=== PATIENT | male | born 2000 | race Caucasian/White ===

== ENCOUNTER 2018-12-03 17:32 | Emergency (ER) | payer SELFPAY ==
[2018-12-03 17:33] VITALS: BP 135/81; PULSE 103; RESP 18; TEMP 36.7; O2SAT 97; BMI 18.7
[2018-12-03 21:30] VITALS: BMI 18.7
== END 2018-12-03 19:09 | disposition left against medical advice (07) ==
LOC: ED 19:12
PROVIDERS: Emergency Provider Emergency Medicine; Family Provider Family Medicine; PCP Family Medicine
DX: R69 Illness, unspecified (principal); Z53.21 Procedure and treatment not carried out due to patient leaving prior to being seen by health care provider
CPT/HCPCS: 99281

== ENCOUNTER 2019-10-05 22:34 | Emergency (ER) | payer SELFPAY ==
[2019-10-05 22:35] VITALS: BP 146/78; PULSE 79; RESP 18; TEMP 36.2; O2SAT 96
--- NOTE | 2019-10-05 22:57 | ED.VISSUMM ---
- ER Visit Summary Date of Service: 10/05/19 Chief Complaint: Right hand pain and swelling History of Present Illness: 18-year-old male was long board skateboarding when he fell injuring his right hand. No other injuries. Physical Examination: Well-appearing young male no acute distress vital signs stable afebrile. HEENT normal. Lungs are clear. Heart regular rhythm. Abdomen soft nontender. Patient is moving all 4 extremities. Neurovascular intact. Normal range of motion. Specifically right elbow, forearm and wrist are nontender nonswollen with normal range of motion. Right hand has swelling and tenderness about the MCP joint and distal fifth or small metacarpal. Skin is intact. He is able to do flexion-extension. The other digits of the hand are nontender nonswollen. Hand is neurovascular intact with normal cap refill and touch sensation. Test Results: Right hand x-ray 3 views read by myself and the radiologist shows a right small or fifth metacarpal distal and angulated fracture. I did go over the x-rays with the patient and his mother. Emergency Department Course and Treatment: X-ray being obtained. Patient did not want anything for pain at this time. Treatment Plan: I applied a short arm ulnar gutter Ortho-Glass splint. Reduce the fracture. Orthopedic follow-up. Disposition: Discharge Impression: Acute right hand fifth or small metacarpal fracture Short arm ulnar gutter Ortho-Glass splint by ER This note was generated with [employer] dictation software. It may contain incorrect words, spelling, and punctuation that were not noted in review of the chart prior to signing ED Disposition - Plan for ED Patient: Referrals: Harshad Nunez MD [Primary Care Provider] -
--- NOTE | 2019-10-05 23:06 | RAD_ITS ---
STUDY: X-RAY - RIGHT HAND REASON FOR EXAM: Male, 18 years old. Right hand pain after fall. TECHNIQUE: view(s) of the hand. COMPARISON: None. FINDINGS: Normal radiocarpal articulation. Normal distal radioulnar joint. Normal visualized carpal bones. Normal carpal articulations Normal carpometacarpal articulation of the thumb. Normal second through fifth carpometacarpal joints. Normal first through fourth metacarpi. There is a fracture of the distal fifth metacarpal with volar angulation of the distal fracture fragment. Normal metacarpophalangeal joint of the thumb. Normal interphalangeal joint of the thumb. Normal proximal and distal phalanges of the thumb. Normal metacarpophalangeal joints of the second through fifth fingers. Normal proximal and distal interphalangeal joints of the second through fifth fingers. Normal phalanges of the second through fifth fingers. There is medial soft tissue swelling. RAD/Hand Min 3 Views IMPRESSION: Fracture of the fifth metacarpal with associated soft tissue swelling. Electronically Signed: Rancho Tompkins DO at 23:17 EDT Tel [phone], Service support ,
--- NOTE | 2019-10-05 23:42 | ED.DEP ---
ED Disposition - Plan for ED Patient: Disposition: Home or Assisted Living Instructions: ED Fx [facility] Referrals: Maikel Shaw, [STAFF PHYSICIAN] - As soon as possible Additional Instructions: Keep splint dry and clean. Ice and elevate for the next 2 days. Tylenol and/or Motrin for pain and swelling. Call and follow-up with Dr. Maikel Shaw of [facility] to have this reevaluated.
== END 2019-10-05 23:49 | disposition home or self-care (01) ==
PROVIDERS: Emergency Provider Emergency Medicine; PCP Family Medicine
DX: S62.396A Other fracture of fifth metacarpal bone, right hand, initial encounter for closed fracture (principal); Z72.0 Tobacco use; W18.30XA Fall on same level, unspecified, initial encounter; Y93.51 Activity, roller skating (inline) and skateboarding; Y92.89 Other specified places as the place of occurrence of the external cause; Y99.8 Other external cause status
CPT/HCPCS: 29125; 73130; 99282

== ENCOUNTER 2024-06-10 12:16 | Emergency (ER) | payer SELFPAY ==
[2024-06-10 12:17] VITALS: BP 125/83; PULSE 82; RESP 18; TEMP 35.8; O2SAT 97
[2024-06-10] MEDS: Ketorolac 15 MG/ML Vial IM (15:36)
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
[2024-06-10 16:02] VITALS: BP 125/83; PULSE 82; RESP 18; TEMP 35.8; O2SAT 97
== END 2024-06-10 16:24 | disposition home or self-care (01) ==
PROVIDERS: Emergency Provider Emergency Medicine; PCP Family Medicine; Visit Provider Emergency Medicine
DX: S39.012A Strain of muscle, fascia and tendon of lower back, initial encounter (principal); F17.290 Nicotine dependence, other tobacco product, uncomplicated; Z87.81 Personal history of (healed) traumatic fracture; X58.XXXA Exposure to other specified factors, initial encounter
CPT/HCPCS: 96372; 99282

== ENCOUNTER 2024-07-26 14:38 | Emergency (ER) | payer SELFPAY ==
[2024-07-26 14:39] VITALS: BP 118/74; PULSE 86; RESP 16; TEMP 37.1; O2SAT 98; BMI 17.4
--- NOTE | 2024-07-26 15:05 | EX.ED.DYSGE1 ---
HPI History of Present Illness Chief Complaint: Sore Throat Informant: patient Narrative Narrative: Patient is on day #3 of sore throat and experiencing some throat swelling. Symptoms are diffuse in his throat along with odynophagia. No fevers or chills. He has had a mild cough, no abdominal pain, mild headache. His significant other was just ill with the same thing, she states the sore throat part lasted about 3 days and is now better and she is still coughing. PFSH PFS Medical History L4 vertebral fracture L3 vertebral fracture Home Medications ?Medication ?Instructions ?Recorded ?Last Taken ?Type ibuprofen 600 mg tablet 600 mg PO Q6H PRN PRN pain #20 06/10/24 Unknown Rx TABLETS amoxicillin 500 mg tablet 500 mg PO TID #30 tabs 07/26/24 Unknown Rx Allergy/AdvReac Type Severity Reaction Status Date / Time cod liver oil AdvReac Upset Verified 07/26/24 14:38 Stomach Social History Smoking Status: Current every day smoker tobacco type: e-cigarettes ROS ROS ED Constitutional Constitutional ED: Denies chills or fever(s) Eyes Eyes: Denies change in vision ENT ENT ED: Reports sore throat and throat swelling; Denies ear pain, nasal congestion, rhinorrhea or tongue swelling Cardiovascular Cardiovascular: Denies chest pain or palpitations Respiratory/Chest Respiratory/Chest: Reports cough; Denies dyspnea Gastrointestinal Gastrointestinal: Denies abdominal pain, diarrhea, nausea or vomiting Genitourinary Genitourinary ED: Denies dysuria or hematuria Musculoskeletal Musculoskeletal: Denies myalgias or neck pain Integumentary Denies abscess or rash Neurologic Neurologic: Reports headache(s); Denies paresthesias or weakness Psychiatric Psychiatric: Denies depression or suicidal thoughts Endocrine Endocrinology: Denies polydipsia or polyuria EXAM Physical Exam Const Vital Signs: 07/26/24 14:39 Temperature 98.8 F Temperature Source Oral Pulse Rate 86 Respiratory Rate 16 Blood Pressure 118/74 Blood Pressure Mean 88 Pulse Ox 98 Oxygen Delivery Method Room Air Positive well nourished and well developed General Appearance ED: well developed and NAD HEENT Reports moist mucous membranes HEENT Narrative: Potato voice, no stridor. Bilateral tonsillar edema, symmetric, along with erythema without exudates. Posterior pharyngeal and palatal erythema no petechia. No trismus. No tongue elevation. normocephalic and atraumatic Throat: Negative for posterior oropharynx abnormal Eyes PERRL and EOMs intact bilaterally Eyes Narrative: No conjunctivitis Neck supple and no meningeal signs Neck Narrative: Submandibular lymph node tenderness, no other cervical or posterior cervical tenderness/lymphadenopathy. Resp normal respiratory effort and clear to auscultation bilaterally Cardio no murmurs Rate: regular rate Rhythm: regular rhythm GI normal to inspection, nondistended, normoactive bowel sounds, non-tender and non-distended; Negative for hepatosplenomegaly Neuro oriented x3, CN's II-XII intact bilaterally and no sensory deficits noted Sensorium / Orientation: alert Motor Exam: strength 5/5 throughout Psych mental status grossly normal Skin Lesions: no lesions Rashes: no rashes MDM MDM MDM Narrative Medical decision making narrative: Sent a rapid strep, it is positive. This is consistent with strep tonsillitis. Given Decadron as well as started on amoxicillin given appropriate discharge instructions and reasons to return. Discharge Plan Triage Chief Complaint: Sore Throat ED Provider: Maximo Thomson Dx/Rx/DC Orders Clinical Impression: Streptococcal tonsillitis Instructions: ED Pharyngitis, Strep (Confirmed) Prescriptions: New amoxicillin 500 mg tablet 500 mg PO TID Qty: 30 0RF No Action ibuprofen 600 mg tablet 600 mg PO Q6H PRN PRN (Reason: pain) Qty: 20 0RF Primary Care Provider: Care Physician,No Primary Referrals: Doctor,Your [Non-Staff] - 3-5 Days if not improving Print Language: Malaysian Disposition Disposition: Home, Self Care
[2024-07-26] MEDS: dexAMETHasone 4 MG Tablet 12 MG PO (16:20)
[2024-07-26] MEDS: AMOXICILLIN 500 MG CAPSULE PO (16:20)
[2024-07-26 16:30] VITALS: BP 124/78; PULSE 64; RESP 18; TEMP 36.6; O2SAT 99
== END 2024-07-26 16:31 | disposition home or self-care (01) ==
PROVIDERS: Emergency Provider Emergency Medicine; Visit Provider Emergency Medicine
DX: J03.00 Acute streptococcal tonsillitis, unspecified (principal); F17.290 Nicotine dependence, other tobacco product, uncomplicated
CPT/HCPCS: 87651; 99282

== ENCOUNTER 2025-02-02 10:21 | Emergency (ER) | payer OTHER, SELFPAY ==
[2025-02-02 10:22] VITALS: BP 144/82; PULSE 99; RESP 16; TEMP 36.5; O2SAT 97; BMI 18.5
--- NOTE | 2025-02-02 10:32 | EX.ED.DYSGE1 ---
HPI History of Present Illness Chief Complaint: Sore Throat Detail of Chief Complaint: Patient presents because of sore throat Informant: patient Onset/Context/Timing Onset: Days (Several days) Context: Sudden Onset Timing: Continuous and Waxes and wanes Quality: Pain Location: Posterior throat Current Severity: Mild Maximum Severity: Severe Worsened by: Swallowing liquids or solids Relieved by: Nothing Associated Symptoms Associated Symptoms: Occipital headache and reports photophobia Narrative Narrative: Patient is a 24-year-old male. He presents with sore throat for the past couple days. He this was preceded by headache as occipital. He reports photophobia and sonophobia. Denies villa ears. Denies drainage from his ears. He denies rhinorrhea, congestion mild postnasal drainage. His voice is slightly muffled. It hurts to swallow. He is able to swallow with no drooling. He has a slight cough. He denies history of medic fever, heart murmur or mitral valve prolapse or SBE. He denies myalgias arthralgias. He denies skin lesion. Prior similar symptoms: No Recent Illness/Hospitalization: No PFSH PFSH Medical History L4 vertebral fracture L3 vertebral fracture Home Medications ?Medication ?Instructions ?Recorded ?Last Taken ?Type ibuprofen 600 mg tablet 600 mg PO Q6H PRN PRN pain #20 06/10/24 Unknown Rx TABLETS amoxicillin 500 mg tablet 500 mg PO TID #30 tabs 07/26/24 Unknown Rx amoxicillin 875 mg-potassium 875 mg PO Q12H #20 TABLETS 02/02/25 Unknown Rx clavulanate 125 mg tablet Allergy/AdvReac Type Severity Reaction Status Date / Time cod liver oil AdvReac Upset Verified 02/02/25 10:22 Stomach Social History Smoking Status: Current every day smoker tobacco type: e-cigarettes ROS ROS ED Constitutional Constitutional ED: Denies chills, fever(s), subjective or sweats Eyes Eyes: Reports other Details: Reports photophobia. ; Denies blurry vision or change in vision ENT ENT ED: Reports sore throat and other Details: There is no trismus. ; Denies ear pain or rhinorrhea Cardiovascular Cardiovascular: Denies chest pain, orthopnea, palpitations or paroxysmal nocturnal dyspnea Respiratory/Chest Respiratory/Chest: Reports cough; Denies dyspnea, dyspnea on exertion, orthopnea, paroxysmal nocturnal dyspnea or sputum Gastrointestinal Gastrointestinal: Denies nausea or vomiting Musculoskeletal Musculoskeletal: Denies arthralgias or myalgias Integumentary Denies rash Neurologic Neurologic: Denies headache(s) EXAM Physical Exam Const Vital Signs: 02/02/25 10:22 Temperature 97.7 F L Temperature Source Temporal Pulse Rate 99 Respiratory Rate 16 Blood Pressure 144/82 H Blood Pressure Mean 102 Pulse Ox 97 Oxygen Delivery Method Room Air Positive well nourished and well developed Constitutional Narrative: Patient has a muffled/hot potato voice. General Appearance ED: well developed and NAD HEENT Reports moist mucous membranes HEENT Narrative: Tonsils are enlarged left much greater than right with exudate in the crypts. Patient has prominence soft palate anterior to the anterior tonsillar pillar. There is fluctuance in the area. Eyes PERRL and EOMs intact bilaterally Eyes Narrative: Patient has no photophobia. General Eye ED: Negative for pale conjunctiva or scleral icterus Neck no lymphadenopathy, supple and no JVD Resp normal respiratory effort and clear to auscultation bilaterally Cardio regular rate, regular rhythm, S1 normal heart sound, S2 normal heart sound and no murmurs Extremity normal to inspection Neuro oriented x3 and CN's II-XII intact bilaterally Sensorium / Orientation: alert Psych mental status grossly normal Skin no rashes or lesions noted, no wounds and skin turgor normal MDM MDM MDM Narrative Medical decision making narrative: Patient has findings exam tonsillitis with peritonsillar cellulitis versus abscess. Since there is slight fluctuance suspect he has a peritonsillar abscess on the left. Patient was informed treatment is aspiration. Patient was informed of risk benefits and essentially have discomfort for about 5 seconds. Approximately 0.2 cc of purulent material was aspirated from the left peritonsillar abscess. Plan is treatment with Augmentin and follow-up with ENT. Rhythm Strip Rhythm Strip: Sinus Rhythm Rate: 9 Ectopy: None Discharge Plan Triage Chief Complaint: Sore Throat ED Provider: Minor Mileso Dx/Rx/DC Orders Clinical Impression: Abscess, peritonsillar, Drainage of peritonsillar abscess performed, Elevated blood pressure reading without diagnosis of hypertension Instructions: ED Peritonsillar Abscess Prescriptions: New amoxicillin-pot clavulanate 875-125 mg tablet 875 mg PO Q12H Qty: 20 0RF No Action ibuprofen 600 mg tablet 600 mg PO Q6H PRN PRN (Reason: pain) Qty: 20 0RF amoxicillin 500 mg tablet 500 mg PO TID Qty: 30 0RF Primary Care Provider: Care Physician,No Primary Referrals: Jeevan Moss MD [Med Staff - Active Staff, Ear Nose Throat (ENT)] - 3-5 Days Care Physician,No Primary [Primary Care Provider, Medical] Activity Restrictions/Additional Instructions: Salt water gargles 4-6 times a day (put 2 tablespoons of salt and a full glass of water. Gargle and then expectorate and repeat until glass is empty.) Take antibiotics until gone. If you are having significant difficulty swallowing or drooling or have any difficulty breathing return to the emergency department immediately Print Language: [place] Islander Disposition Disposition: Home, Self Care
[2025-02-02 10:46] VITALS: BP 144/82; PULSE 99; RESP 16; TEMP 36.5; O2SAT 97
== END 2025-02-02 10:52 | disposition home or self-care (01) ==
PROVIDERS: Emergency Provider Emergency Medicine; Visit Provider Emergency Medicine
DX: J36 Peritonsillar abscess (principal); R03.0 Elevated blood-pressure reading, without diagnosis of hypertension; F17.290 Nicotine dependence, other tobacco product, uncomplicated
CPT/HCPCS: 42700; 99282